=== PATIENT | female | born 1960 | race African-American/Black ===

== ENCOUNTER 2016-07-15 12:55 | Emergency (ER) | payer MEDICARE ==
[~2016-07-15 12:55] MED LIST: ACET500CAP PO; ASAB PO; AUG875 PO; BACTROINT TOP; CELEXA20 PO; COZAAR100 MG PO; DEXILANT PO; EXFORGE HC4 PO; GLUCOTRO10 PO; GLUCPH PO; HUMALOGMIX SC; HYZAAR 100/25 T1 TAB PO; IMDUR30 PO; INSNOVN SC; INSNOVR SC; KAPIDEX60 MG PO; KLOR-CON M1010 MEQ PO; KLOR-CON M2020 MEQ PO; L20 PO; L40 PO; L80 PO; LAMIS15 TOP; LIPITOR10 PO; LIPITOR40 PO; NABUMETONE750 MG PO; NEUR300 PO; NORCO1 TA1 PO; NORV10 PO; NORV5 PO; PRILO PO; PRIN20 PO; PT UNABLE TO RECALL; VISINE TEARS15 ML OPH; VITAMIN D31000 UNIT PO; ZANTAC150 MG PO; ZOL50 PO
== END 2016-07-15 14:32 | disposition left against medical advice (07) ==
LOC: ER 12:55
DX: Z53.21 Procedure and treatment not carried out due to patient leaving prior to being seen by health care provider (principal)
CPT/HCPCS: 71020; 80048; 83735; 84484; 85025; 85610; 85730; 93005